=== PATIENT | male | born 1945 | race Caucasian/White ===

== ENCOUNTER 2020-11-30 17:04 | Emergency (ER) | payer MEDICARE, OTHER ==
[~2020-11-30 17:04] MED LIST: MOBIC15 MG PO
[2020-11-30 20:44] LABS: HEMOGLOBIN 14.5 gm/dl (14.0-17.5); RED BLOOD COUNT 4.67 M/UL (4.20-5.50); WHITE BLOOD COUNT 5.3 K/UL (4.5-11.0)
[2020-11-30 20:59] LABS: BUN/CREATININE RATIO 16 (0-10)
[2020-11-30] MEDS ORDERED: VENTOLIN HFA 66.7 GM INH (22:05)
== END 2020-11-30 22:25 | disposition home or self-care (01) ==
LOC: ER1 17:04
PROVIDERS: Physician Assistant
DX: U07.1 COVID-19 (principal); E11.9 Type 2 diabetes mellitus without complications
CPT/HCPCS: 36415; 71045; 80053; 85025; 99284; M0239